=== PATIENT | male | born 1955 | race African-American/Black ===

== ENCOUNTER 2024-07-16 14:18 | Emergency (ER) | payer OTHER ==
[~2024-07-16] VITALS: Ht 167.6 cm; Wt 82.0 kg
[2024-07-16 14:23] VITALS: O2SAT 100
[2024-07-16] MEDS ORDERED: SIMV10TA97 MT (14:55)
[2024-07-16] MEDS ORDERED: DYR5 MT (14:55)
[2024-07-16] MEDS ORDERED: TERA1CAP53 MT (14:55)
[2024-07-16] MEDS ORDERED: TAMS-11 MT (14:55)
[2024-07-16] MEDS ORDERED: LISI-186 MT (14:55)
[2024-07-16 15:29] LABS: CLARITY URINE CLEAR (CLEAR); COLOR URINE YELLOW (YELLOW); GLUCOSE URINE NEGATIVE (NEGATIVE); KETONES URINE NEGATIVE (NEGATIVE); LEUKOCYTE ESTERASE URINE TRACE (NEGATIVE); NITRITE URINE NEGATIVE (NEGATIVE); OCCULT BLOOD URINE TRACE (NEGATIVE); PH URINE 8.5 (4.5-8.0); PROTEIN URINE 1+ (NEGATIVE)
[2024-07-16 15:54] LABS: BACTERIA URINE TRACE; SQUAMOUS EPITHELIAL CELL URINE 1+ /lpf (RARE/1+); TRIPLE PHOSPHATE CRYSTAL URINE 2+ /lpf; WBC URINE 0-2 /hpf (0-2)
[2024-07-16 16:31] VITALS: BP 155/85; PULSE 62; RESP 16; TEMP 37; O2SAT 100
== END 2024-07-16 18:13 | disposition home or self-care (01) ==
LOC: EDBD → ER 14:18
DX: R33.8 Other retention of urine (principal); N40.1 Benign prostatic hyperplasia with lower urinary tract symptoms; Z76.0 Encounter for issue of repeat prescription; I10 Essential (primary) hypertension; M19.90 Unspecified osteoarthritis, unspecified site; Z79.899 Other long term (current) drug therapy
CPT/HCPCS: 51702; 81003; 99284

== ENCOUNTER 2024-07-19 12:03 | Emergency (ER) | payer OTHER ==
[~2024-07-19] VITALS: Ht 170.2 cm; Wt 79.5 kg
[~2024-07-19 12:03] MED LIST: DYR5 MT; LISI-186 MT; SIMV10TA97 MT; TAMS-11 MT; TERA1CAP53 MT
[2024-07-19 12:14] VITALS: O2SAT 97
[2024-07-19 13:56] VITALS: BP 110/62; PULSE 80; RESP 18; TEMP 36.7; O2SAT 98
== END 2024-07-19 13:57 | disposition home or self-care (01) ==
LOC: EDBD 12:03 → ER 12:03
DX: N40.0 Benign prostatic hyperplasia without lower urinary tract symptoms (principal); Z46.6 Encounter for fitting and adjustment of urinary device; M19.90 Unspecified osteoarthritis, unspecified site; I10 Essential (primary) hypertension; Z79.899 Other long term (current) drug therapy
CPT/HCPCS: 99281